=== PATIENT | female | born 1940 | race Caucasian/White ===

== ENCOUNTER 2020-10-31 21:12 | Inpatient (IN) | payer MEDICARE, BC ==
[~2020-10-31] VITALS: Ht 160 cm; Wt 41.0 kg
[2020-10-31 21:40] VITALS: BP 141/52
[2020-10-31 21:49] LABS: MPV 7.1 fl. (7.2-11.1); PLATELET COUNT* 564 thou/uL (150-400)
[2020-10-31 21:50] LABS: BE -1.7 mmol/L (-2 to +3); PO2 71.3 mmHg (75.0-100.0)
[2020-10-31 21:51] LABS: HEMATOCRIT 41.4 % (37.0-47.0); HEMOGLOBIN 13.2 gm/dL (12.0-15.0); MCH 32.8 pg (26.0-34.0); MCHC 31.8 g/dL (28.0-37.0); MCV 103.2 fL (80.0-100.0); NUCLEATED RBCS 0 /100WBC; RBC 4.02 mil/uL (4.20-5.00); RDW-CV 14.2 % (10.5-14.5)
[2020-10-31 21:53] LABS: pH 7.205 (7.340-7.450)
[2020-10-31 21:53] LABS: WBC 50.3 thou/uL (4.0-11.0)
[2020-10-31 21:54] LABS: PCO2 72.7 mmHg (35.0-45.0)
[2020-10-31 21:54] LABS: CALCIUM 8.7 mg/dL (8.5-10.1); CREATININE 1.5 mg/dL (0.6-1.3); POTASSIUM 5.4 mmol/L (3.5-5.1)
[2020-10-31 22:04] LABS: INR 1.1; PROTIME 11.4 Seconds (9.20-11.50)
[2020-10-31 22:05] LABS: ALBUMIN 1.7 g/dL (3.4-5.0); MAGNESIUM 2.1 mg/dL (1.8-2.4); TOTAL BILIRUBIN 0.4 mg/dL (<0.1-1.0); TOTAL PROTEIN 6.7 g/dL (6.4-8.2)
[2020-10-31 22:18] LABS: ABSOLUTE LYMPHOCYTES 18.1 thou/uL (0.8-5.3); ABSOLUTE MONOCYTES 0.5 thou/uL (0.0-1.2); ABSOLUTE NEUTROPHILS 31.7 thou/uL (1.6-8.1)
[2020-10-31 22:19] LABS: MACROCYTES 1+; PLATELET ESTIMATE INCREASED
[2020-10-31 23:47] LABS: URINE BILIRUBIN NEGATIVE (Negative); URINE BLOOD NEGATIVE (Negative); URINE CLARITY CLEAR; URINE COLOR YELLOW; URINE GLUCOSE-RANDOM NEGATIVE (Negative); URINE KETONES NEGATIVE (Negative); URINE LEUKOCYTES-REFLEX NEGATIVE (Negative); URINE NITRITE-REFLEX NEGATIVE (Negative); URINE PROTEIN TRACE (Negative); URINE SPECIFIC GRAVITY 1.025 (1.005-1.030); URINE UROBILINOGEN 0.2 E.U./dl (0.2-1.0)
[2020-10-31 23:58] VITALS: BP 144/54
[2020-11-01] VITALS (63 sets, daily range): BP systolic 58–168; BP diastolic 26–104
[2020-11-01 01:25] LABS: BE -3.1 mmol/L (-2 to +3); PO2 77.6 mmHg (75.0-100.0)
[2020-11-01 01:26] LABS: PCO2 68.3 mmHg (35.0-45.0); pH 7.202 (7.340-7.450)
[2020-11-01 06:59] LABS: PO2 66.3 mmHg (75.0-100.0)
[2020-11-01 07:01] LABS: PCO2 89.6 mmHg (35.0-45.0); pH 7.123 (7.340-7.450)
[2020-11-01 09:47] LABS: AMP/METHAMP Negative (Negative); BARBITURATES Negative (Negative); BENZODIAZEPINES Negative (Negative); COCAINE Negative (Negative); METHADONE Negative (Negative); OPIATES Negative (Negative); PCP Negative (Negative); THC Negative (Negative)
[2020-11-01 10:15] LABS: AMP/METHAMP Negative (Negative); BARBITURATES Negative (Negative); BENZODIAZEPINES Negative (Negative); COCAINE Negative (Negative); METHADONE Negative (Negative); OPIATES Negative (Negative); PCP Negative (Negative); THC Negative (Negative)
--- NOTE | 2020-11-01 11:06 | EKG ---
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 : 1940 Requested By: Rohini Carney Order Number: [id number] MD: Hernán Hubbard Measurements Intervals [place] Rate: 93 P: 90 PA: 116 QRS: 100 QRSD: 69 T: -74 QT: 377 QTc: 469 Interpretive Statements Sinus rhythm Borderline short PA interval Low voltage with right axis deviation Anteroseptal infarct, old Minimal ST depression, inferior leads No previous ECG available for comparison Electronically Signed On 11-01-2020 11:06:31 COPY PREPARER by Hernán Hubbard [email or web address] <ELECTRONICALLY SIGNED> By: Hernán Hubbard MD, [facility] 11/01/20 1106 24 24 Hernán Hubbard MD, [facility] /EPI
[2020-11-01 11:09] LABS: BE -1.1 mmol/L (-2 to +3); PCO2 43.9 mmHg (35.0-45.0); PO2 67.7 mmHg (75.0-100.0); pH 7.362 (7.340-7.450)
[2020-11-01 11:25] LABS: ABSOLUTE LYMPHOCYTES 11.1 thou/uL (0.8-5.3); ABSOLUTE MONOCYTES 0.7 thou/uL (0.0-1.2); ABSOLUTE NEUTROPHILS 23.7 thou/uL (1.6-8.1); HEMATOCRIT 28.2 % (37.0-47.0); HEMOGLOBIN 8.7 gm/dL (12.0-15.0); LYMPHOCYTES 31.3 %; MCHC 30.9 g/dL (28.0-37.0); MCV 103.5 fL (80.0-100.0); MPV 6.9 fl. (7.2-11.1); NUCLEATED RBCS 0 /100WBC; PLATELET COUNT* 370 thou/uL (150-400); POLYS 66.7 %; RBC 2.72 mil/uL (4.20-5.00); RDW-CV 14.2 % (10.5-14.5); WBC 35.6 thou/uL (4.0-11.0)
[2020-11-01 11:51] LABS: ALBUMIN 1.1 g/dL (3.4-5.0); CREATININE 1.3 mg/dL (0.6-1.3); TOTAL BILIRUBIN 0.5 mg/dL (<0.1-1.0); TOTAL PROTEIN 4.5 g/dL (6.4-8.2)
[2020-11-01 11:55] LABS: POTASSIUM 3.7 mmol/L (3.5-5.1)
--- NOTE | 2020-11-01 13:10 | CON ---
[address] [address] CONSULTATION Name: GREGORY GIPSON Room: [address] IN M.R.#: [id number] Admission: 10/31/20 Attend Phys: Jose Levi MD Discharge: Date of : 44 Report #: [id number] THIS REPORT FOR: cc: FAM - No family physician/PCP FAM - No family physician/PCP ~ Scooter Bee MD DATE OF SERVICE: 11/01/2020 REQUESTING PHYSICIAN: 1. Dr. Levi 2. Dr. Gomez INDICATION FOR CONSULTATION: Acute hypoxemic respiratory failure. HISTORY OF PRESENT ILLNESS: A 80-year-old female, information regarding past medical history is limited. The patient is, however, reported to have had CLL. The patient also has significant alcohol intake. Information regarding previous history of smoking is not available at this time. The patient is reported to be having progressively increasing weakness. She was reported to be reluctant to seek medical attention. The patient's family eventually noticed that the patient could not even stand unassisted and therefore brought her to the Emergency Room. The patient was noted to be hypoxemic on initial arrival. She also had pCO2 elevation. Further, the patient had a total whiteout of the left lung with no significant infiltrates seen on the chest x-ray on the right side. We initially placed the patient on a BiPAP since she also had significantly decreased pH and pCO2 was elevated. This in fact worsened on BiPAP and therefore, we proceeded to endotracheally intubating the patient this morning. The patient is currently on 75% FiO2 with 5 of PEEP. She is doing better on the ventilator. She did become hypotensive and now is on low-dose norepinephrine. She has received IV fluids initially. There is also elevation in creatinine to 1.5. It is not known to me whether this is acute or chronic. The patient despite having had a significant alcohol intake, in fact, appears to be very sensitive to Versed and in fact is quickly going to sleep with just 1 mg of Versed although she does subsequently wake up quickly. We currently have her on a p.r.n. Versed and fentanyl. She appears to be intermittently getting agitated between boluses. Since intubation, there is partial expansion of the left lung. We have also suctioned out a large amount of sputum. We have had a PICC line placed. The patient currently is on the ventilator and is unable to provide a further [place] [address] CONSULTATION Name: GREGORY GIPSON Room: [address]#: [id number] Admission: 10/31/20 Attend Phys: Jose Levi MD Discharge: Date of : 44 Report #: [id number] PAST MEDICAL HISTORY: CLL. Additional past medical history, not known at this time. CURRENT MEDICATIONS: The list in [employer] reviewed. HOME MEDICATIONS: Unknown. SOCIAL HISTORY: Several beers every night and therefore a significant alcohol intake. Information regarding smoking or drug use not available at this time. FAMILY HISTORY: Unavailable. ALLERGIES: No known drug allergies. PHYSICAL EXAMINATION: GENERAL: The patient was drowsy, but was at the same time also struggling in bed. We sedated her with just 1 mg of Versed and she quickly went to sleep. She is on low dose norepinephrine. VITAL SIGNS: Blood pressure is 90/60. She has a heart rate around 90. She is saturating close to 96%. She is on 75% FiO2 with a tidal volume of 420, rate is set at 20, PEEP is 5. Endotracheal tube is low in the trachea. Pupil examination is limited due to limited patient cooperation. She does appear to be emaciated with a body mass index of 15.8. HEENT: Head is normocephalic and atraumatic. NECK: Does not show raised JVP, asymmetry, mass or lymph nodes. CHEST: Decreased expansion on the left side compared with a right on inspection as well as palpation. On auscultation, breath sounds are markedly decreased on the left side compared with the right. There are occasional rales on the left side. HEART: Regular. There is no murmur. ABDOMEN: Soft and nontender. EXTREMITIES: Lower extremities show no edema, no calf tenderness. SKIN: Dry and intact. NEUROLOGICAL: She was moving all extremities. I did not identify a focal deficit. LABORATORY DATA: The patient's chest x-ray is repeated 3 times in [facility] reviewed. See further discussion regarding x-rays as above. The patient also had a CT chest without contrast. Yesterday, I also reviewed the same and this is discussed below with assessment and plan in more detail. X-ray abdomen also reviewed, both the films and report there are no additional findings. ASSESSMENT AND PLAN: 1. Acute hypoxemic respiratory failure. We will keep the patient on the [address] [address] CONSULTATION Name: GREGORY GIPSON Room: [address] IN [facility].#: [id number] Admission: 10/31/20 Attend Phys: Jose Levi MD Discharge: Date of : 44 Report #: [id number] ventilator. We may be able to decrease the rate soon as arterial blood gases, which have been reviewed show pCO2 now normalizing, we will titrate FiO2. Since she is on high FiO2 and had significant hypercarbia and information regarding previous lung disease, not available. I did give her a significant dose of Solu-Medrol in addition to nebulized bronchodilators. Since she is intermittently waking up between sedation and getting agitated with p.r.n. sedation. I will go ahead and place her on a fentanyl drip. We will continue with Versed on a p.r.n. basis. She may also be given fentanyl boluses, would sedated to a RAST -2 at this time even if this leads to an increase in pressure needs. 2. Extensive left lung infiltrates/large left-sided pleural effusion/possible empyema/left lung collapse. I reviewed with Dr. Daniels, interventional radiologist and discussed as to whether we should place a pigtail or perform a thoracentesis first. His preference is to proceed with thoracentesis and I understand that this will be performed soon at the bedside. We will see how the patient responds. It is possible that the patient down the line needs a pigtail or chest tube placement on the left side. Meanwhile, I would like to cover her very broadly started Zosyn during the night. I will go ahead and add vancomycin while closely watching her creatinine. We will follow sputum culture results. The patient also is on doxycycline. I did not change this at this time but perhaps there is a case to continue some atypical as well as Stenotrophomonas maltophilia coverage, which doxycycline does provide until the cultures are back. An option could be to use Levaquin instead, which obviously will be more effective and also have more side effects. We will follow an advise. 3. Hypotension/hypoalbuminemia/renal insufficiency/planned large volume pleural effusion removal. I expect a large volume of pleural fluid to be removed. I would give albumin. We have ordered repeat labs and we will review when these are available and then reassess fluids. 4. Mucus plugging. Mucomyst dose increased. Would first treat by removing the fluid on the left side and the pleural effusion if the left lung fails to expand, certainly a bronchoscopy in the next few days will be a possible consideration later. 5. History of alcohol intake. I will order thiamine and folate, but interestingly, she is very sensitive to Versed despite this history. We will try to get more information regarding her past history. 6. Rule out COVID-19. My overall suspicion is low, but I feel that it is reasonable to check a PCR and rule this out. The antigen is negative. The patient currently is in isolation for COVID till back. 7. Evaluation for thromboembolic phenomena/deep venous thrombosis prophylaxis/evaluation of cardiac function. Check echo, check venous Dopplers, Lovenox for deep venous thrombosis prophylaxis. 8. Gastrointestinal prophylaxis, Protonix. 9. Clostridium difficile prophylaxis. We [place] [address] CONSULTATION Name: GREGORY GIPSON Room: [address] IN .R.#: [id number] Admission: 10/31/20 Attend Phys: Jose Levi MD Discharge: Date of : 44 Report #: [id number]. 10. Drop in H and H, I feel the significant part of this is dilutional. Regardless, we will follow if continues to drop, we will give packed RBCs. 11. Leukocytosis/history of chronic lymphocytic leukemia. She does have a history of chronic lymphocytic leukemia, had a significant leukocytosis. I feel that a significant component of this is secondary to sepsis as well. 12. IV access, we placed a PICC line. 13. The patient is critically ill at this time. Total time spent providing critical care to this patient today is 1 hour. <ELECTRONICALLY SIGNED> By: Scooter Bee MD 11/01/20 1310 1141 1258Afranc Bee MD /nt
[2020-11-01 13:25] LABS: BF RBC <1000 /mm3; TOTAL CELL COUNT 757 /mm3
[2020-11-01 13:28] LABS: CLARITY SLIGHTLY HAZY; TOTAL VOLUME 1660 ml
[2020-11-01 13:44] LABS: BF LYMPHOCYTES 19 %; BF POLYS 81 %; BF TISSUE 23 /100 WBC
[2020-11-01 13:50] LABS: SOURCE THORACENTESIS
--- NOTE | 2020-11-01 16:28 | 2DMMODE ---
[place] [address] 2 D/M-MODE ECHOCARDIOGRAM Name: GREGORY GIPSON Room: [address] IN [facility]#: [id number] Admission: 10/31/20 Attend Phys: Jose Levi, Discharge: Date of : 44 Date of Service: 11/01/20 1628 Report #: [id number] THIS REPORT FOR: cc: FAM - No family physician/PCP FAM - No family physician/PCP Nicolás Adams MD [facility] ~ APPROVED REPORT Study performed: 11/01/2020 14:15:30 EXAM: Comprehensive 2D, Doppler, and color-flow Echocardiogram Patient Location: In-Patient Room #: 002 Status: routine BSA: 1.37 HR: 73 bpm BP: 126/54 mmHg Rhythm: NSR Other Information Study Quality: Good Indications Dyspnea 2D Dimensions IVSd: 9.50 (7-11mm) LVOT Diam: 17.20 (18-24mm) LVDd: 37.14 mm PWd: 8.06 (7-11mm) Ascending Ao: 21.73 (22-36mm) LVDs: 14.59 (25-40mm) Aortic Root: 24.76 mm Volumes Left Atrial Volume (Systole) LA ESV Index: 27.70 mL/m2 Aortic Valve AoV Peak Jose.: 1.53 m/s AO Peak Gr.: 9.41 mmHg LVOT Max P.21 mmHg AO Mean Gr.: 4.26 mmHg LVOT Mean P.59 mmHg LVOT Max V: 1.43 m/s AO V2 VTI: 34.90 cm LVOT Mean V: 0.73 m/s JT (VTI): 1.91 cm2 LVOT V1 VTI: 28.66 [place] [address] 2 D/M-MODE ECHOCARDIOGRAM Name: GREGORY GIPSON Room: [address]#: [id number] Admission: 10/31/20 Attend Phys: Jose Levi, Discharge: Date of : 44 Date of Service: 11/01/20 1628 Report #: [id number] Mitral Valve E/A Ratio: 1.48 MV Decel. Time: 192.69 ms MV E Max Jose.: 1.04 m/s MV PHT: 55.88 ms MVA (PHT): 3.94 cm2 TDI E/Lateral E': 13.00 E/Medial E': 10.40 Medial E' Jose.: 0.10 m/s Lateral E' Jose.: 0.08 m/s Pulmonary Valve PV Peak Jose.: 0.95 m/s PV Peak Gr.: 3.60 mmHg Tricuspid Valve RAP Estimate: 5.00 mmHg TR Peak Gr.: 34.51 mmHg RVSP: 39.00 mmHg PA Pressure: 39.00 mmHg Left Ventricle The left ventricle is normal size. There is normal LV segmental wall motion. There is normal left ventricular wall thickness. The left ventricular systolic function is normal. LVEF is >70%. The left ventricular diastolic function is normal. Right Ventricle Right ventricle is mildly dilated. The right ventricular systolic function is normal. Atria The left atrium size is normal. Right atrium is mildly dilated. Aortic Valve Mild aortic valve sclerosis. No aortic regurgitation is present. There is no aortic valvular stenosis. Mitral Valve The mitral valve is normal in structure. Mild mitral regurgitation. No evidence of mitral valve stenosis. Tricuspid Valve The tricuspid valve is normal in structure. Mild tricuspid regurgitation. Mild pulmonary hypertension. The RVSP is 40-[place] [address] 2 D/M-MODE ECHOCARDIOGRAM Name: GREGORY GIPSON Room: [address]#: [id number] Admission: 10/31/20 Attend Phys: Jose Levi, Discharge: Date of : 44 Date of Service: 11/01/20 1628 Report #: [id number] Pulmonic Valve The pulmonary valve is normal in structure. There is no pulmonic valvular regurgitation. Great Vessels The aortic root is normal in size. IVC is normal in size and collapses >50% with inspiration. Pericardium There is no pericardial effusion. <Conclusion> The left ventricle is normal size. There is normal left ventricular wall thickness. The left ventricular systolic function is normal. LVEF is >70%. The left ventricular diastolic function is normal. Right ventricle is mildly dilated. Right atrium is mildly dilated. Mild aortic valve sclerosis. Mild mitral regurgitation. Mild tricuspid regurgitation. Mild pulmonary hypertension. The RVSP is 40-45 mmHg. IVC is normal in size and collapses >50% with inspiration. <ELECTRONICALLY SIGNED> By: Nicolás Adams MD, FACC 11/01/20 1628 1628 1628 Nicolás Adams MD, FACC /INF
[2020-11-01 18:00] LABS: ABSOLUTE LYMPHOCYTES 15.7 thou/uL (0.8-5.3); ABSOLUTE MONOCYTES 0.7 thou/uL (0.0-1.2); ABSOLUTE NEUTROPHILS 23.6 thou/uL (1.6-8.1); BASOPHILS 0.1 %; HEMATOCRIT 30.4 % (37.0-47.0); HEMOGLOBIN 9.6 gm/dL (12.0-15.0); LYMPHOCYTES 39.2 %; MCH 32.8 pg (26.0-34.0); MCHC 31.5 g/dL (28.0-37.0); MONOCYTES 1.8 %; NUCLEATED RBCS 0 /100WBC; PLATELET COUNT* 368 thou/uL (150-400); POLYS 58.9 %; RBC 2.92 mil/uL (4.20-5.00)
[2020-11-01 18:06] LABS: WBC 40.1 thou/uL (4.0-11.0)
[2020-11-01 18:09] LABS: CALCIUM 7.6 mg/dL (8.5-10.1); CREATININE 1.5 mg/dL (0.6-1.3); MAGNESIUM 2.4 mg/dL (1.8-2.4)
[2020-11-01 18:11] LABS: POTASSIUM 4.8 mmol/L (3.5-5.1)
[2020-11-02] VITALS (60 sets, daily range): BP systolic 80–156; BP diastolic 33–73
[2020-11-02 05:24] LABS: ABSOLUTE LYMPHOCYTES 14.9 thou/uL (0.8-5.3); ABSOLUTE NEUTROPHILS 22.3 thou/uL (1.6-8.1); BASOPHILS 0.1 %; HEMOGLOBIN 8.4 gm/dL (12.0-15.0); LYMPHOCYTES 39.1 %; MCH 33.6 pg (26.0-34.0); MCHC 32.1 g/dL (28.0-37.0); MCV 104.7 fL (80.0-100.0); MONOCYTES 2.5 %; MPV 7.1 fl. (7.2-11.1); NUCLEATED RBCS 0 /100WBC; PLATELET COUNT* 310 thou/uL (150-400); POLYS 58.3 %; RBC 2.49 mil/uL (4.20-5.00); RDW-CV 13.8 % (10.5-14.5); WBC 38.2 thou/uL (4.0-11.0)
[2020-11-02 06:00] LABS: CALCIUM 7.7 mg/dL (8.5-10.1); CREATININE 1.5 mg/dL (0.6-1.3); MAGNESIUM 2.1 mg/dL (1.8-2.4); TOTAL BILIRUBIN 0.5 mg/dL (<0.1-1.0); TOTAL PROTEIN 5.7 g/dL (6.4-8.2)
[2020-11-02 06:01] LABS: POTASSIUM 3.7 mmol/L (3.5-5.1)
[2020-11-02 08:14] LABS: PCO2 34.8 mmHg (35.0-45.0); PO2 76.1 mmHg (75.0-100.0); pH 7.417 (7.340-7.450)
[2020-11-02 15:15] LABS: BODY FLUID PROTEIN 2.3
[2020-11-02 16:31] LABS: CALCIUM 7.5 mg/dL (8.5-10.1); CREATININE 1.4 mg/dL (0.6-1.3); MAGNESIUM 1.9 mg/dL (1.8-2.4); POTASSIUM 4.4 mmol/L (3.5-5.1)
[2020-11-03] VITALS (13 sets, daily range): BP systolic 113–152; BP diastolic 46–70
[2020-11-03 04:21] LABS: HEMATOCRIT 29.5 % (37.0-47.0); HEMOGLOBIN 9.3 gm/dL (12.0-15.0); MCH 32.8 pg (26.0-34.0); MCHC 31.4 g/dL (28.0-37.0); MCV 104.3 fL (80.0-100.0); MPV 7.3 fl. (7.2-11.1); RBC 2.83 mil/uL (4.20-5.00); RDW-CV 14.1 % (10.5-14.5)
[2020-11-03 04:33] LABS: WBC 40.1 thou/uL (4.0-11.0)
[2020-11-03 05:00] LABS: ALBUMIN 2.6 g/dL (3.4-5.0); CALCIUM 8.3 mg/dL (8.5-10.1); CREATININE 1.4 mg/dL (0.6-1.3); MAGNESIUM 1.8 mg/dL (1.8-2.4); POTASSIUM 3.7 mmol/L (3.5-5.1); TOTAL BILIRUBIN 0.4 mg/dL (<0.1-1.0); TOTAL PROTEIN 5.3 g/dL (6.4-8.2)
[2020-11-03 06:51] LABS: BE -3.1 mmol/L (-2 to +3); PCO2 41.4 mmHg (35.0-45.0); pH 7.349 (7.340-7.450)
[2020-11-03 06:54] LABS: PO2 59.5 mmHg (75.0-100.0)
[2020-11-04] VITALS (28 sets, daily range): BP systolic 113–155; BP diastolic 49–68
[2020-11-04 05:24] LABS: HEMATOCRIT 27.9 % (37.0-47.0); HEMOGLOBIN 9.2 gm/dL (12.0-15.0); MCH 34.9 pg (26.0-34.0); MCHC 32.8 g/dL (28.0-37.0); MCV 106.4 fL (80.0-100.0); MPV 7.9 fl. (7.2-11.1); NUCLEATED RBCS 0 /100WBC; PLATELET COUNT* 238 thou/uL (150-400); RBC 2.62 mil/uL (4.20-5.00); RDW-CV 14.4 % (10.5-14.5); WBC 34.6 thou/uL (4.0-11.0)
[2020-11-04 05:42] LABS: ALBUMIN 2.8 g/dL (3.4-5.0); CALCIUM 7.7 mg/dL (8.5-10.1); CREATININE 1.2 mg/dL (0.6-1.3); POTASSIUM 3.6 mmol/L (3.5-5.1); TOTAL BILIRUBIN 0.4 mg/dL (<0.1-1.0); TOTAL PROTEIN 5.6 g/dL (6.4-8.2)
[2020-11-04 07:52] LABS: BE -3.2 mmol/L (-2 to +3); PCO2 37.4 mmHg (35.0-45.0); pH 7.378 (7.340-7.450)
[2020-11-04 08:33] LABS: ABSOLUTE MONOCYTES 0.3 thou/uL (0.0-1.2); ABSOLUTE NEUTROPHILS 26.3 thou/uL (1.6-8.1)
[2020-11-04 08:34] LABS: MACROCYTES 1+; PLATELET ESTIMATE ADEQUATE; TOXIC GRANULATION Occasional
[2020-11-05] VITALS (32 sets, daily range): BP systolic 75–127; BP diastolic 34–73
[2020-11-05 05:01] LABS: HEMATOCRIT 31.2 % (37.0-47.0); HEMOGLOBIN 9.9 gm/dL (12.0-15.0); MCHC 31.8 g/dL (28.0-37.0); MCV 103.8 fL (80.0-100.0); MPV 7.8 fl. (7.2-11.1); RBC 3.01 mil/uL (4.20-5.00); RDW-CV 14.5 % (10.5-14.5); WBC 35.8 thou/uL (4.0-11.0)
[2020-11-05 05:13] LABS: PCO2 32.2 mmHg (35.0-45.0); PO2 70.3 mmHg (75.0-100.0); pH 7.355 (7.340-7.450)
[2020-11-05 05:15] LABS: CALCIUM 7.9 mg/dL (8.5-10.1); CREATININE 1.2 mg/dL (0.6-1.3); POTASSIUM 3.5 mmol/L (3.5-5.1)
[2020-11-05 11:57] LABS: PROTIME 10.9 Seconds (9.20-11.50)
[2020-11-05 14:20] LABS: BF LYMPHOCYTES 24 %; BF MONOCYTES 1 %; BF POLYS 74 %; BF TISSUE 6 /100 WBC; BODY FLUID BANDS 1 %
[2020-11-05 14:21] LABS: CLARITY SLIGHTLY CLOUDY; SOURCE PLEURAL; TOTAL VOLUME 860 ml
[2020-11-05 14:22] LABS: BF RBC 102 /mm3; TOTAL CELL COUNT 190 /mm3
--- NOTE | 2020-11-05 16:06 | PATH ---
[address] [address] PATHOLOGY RPT PROCEDURE Name: GREGORY GIPSON Room: [address] IN [facility]#: [id number] Admission: 10/31/20 Date of : 44 Discharge: Report #: [id number] Path Case #: [id number] Note [facility] Accession Number: [id number] TESTS RESULT FLAG UNITS REF RANGE LAB Clinician Provided Cytology Information No. of containers..01 Other (Miscellaneous) Source: LT PLEURAL FLUID DIAGNOSIS: LT PLEURAL FLUID NEGATIVE FOR MALIGNANT CELLS. FEW MESOTHELIAL CELLS AND MODERATE ACUTE AND CHRONIC INFLAMMATORY CELLS ARE PRESENT. THIS INTERPRETATION INCLUDES EVALUATION OF A CELL BLOCK. Signed out by: 02 Rich Hamm MD, Pathologist NPI- [id number] Performed by: 01 Paige Terrell, Ring Conductor ([facility]) Gross description: 01 55ML, YELLOW, 1TP 1CB /LCS 11/02/2020 0725 Local FLAG LEGEND: L-Low Normal,H-High Normal,LL-Alert Low,HH-Alert High <-Panic Low,>-Panic High,A-Abnormal,AA-Critical Abnormal Performed at: [address] [place] [address] Sergio Begum MD, 02 [facility] [address] [place] [address] Rich Hamm MD, Specimen Comment: Report sent to Performed at: [address], [place], [place] [id number] MD Sergio Begum MD Phone: [phone]
--- NOTE | 2020-11-05 21:05 | PROC ---
[address] [address] PROCEDURE REPORT Name: GREGORY GIPSON Room: [address] IN M.R.#: [id number] Admission: 10/31/20 Attend Phys: Jose Levi MD Discharge: Date of : 44 Report #: [id number] THIS REPORT FOR: cc: FAM - No family physician/PCP FAM - No family physician/PCP ~ Scotoer Bee MD DATE OF SERVICE: 11/02/2020 PROCEDURE PERFORMED: Bronchoscopy with bronchial washings. INDICATION FOR PROCEDURE: Left mainstem obstruction secondary to mucus plugging. POSTPROCEDURE DIAGNOSIS: Large amount of mucus was noted to be obstructing the left mainstem and was present throughout the left bronchial tree and was suctioned out. CONSENT: Informed consent was obtained from the patient, so the patient's RN discussed in detail with the patient's daughter. SEDATION: The patient was already on a Precedex infusion. We also administered 2 mg of Versed. DESCRIPTION OF PROCEDURE: A lubricated bronchoscope was advanced through the endotracheal tube and then I proceeded to examining the bronchial tree. We instilled 3 mL of 2% Xylocaine in the trachea, right as well as left mainstem. There was a significant amount of mucus noted, which was thick cream colored/yellow in the trachea. This was suctioned out. Trachea, however, was patent. There was obstruction of the left mainstem noted secondary to mucous plugging. Mucus from here was suctioned out. I first proceeded to obtaining a sample of about 20 mL of thick yellow mucus in a trap. After which for better suction, I removed the trap and proceeded with more suction without the trap in place. Initially, the mucus was very thick and it was difficult to suction it out and therefore, we instilled the 3 mL of 20% Mucomyst solution. After which, we were able to suction the mucus into the bronchoscope. Significant amounts of saline, however, were needed to be able to clear the patient's airways. At one point, the bronchoscope got occluded with mucus and I removed the bronchoscope from the patient, rinsed it with saline and then reintroduced. In all 110 mL of saline were instilled in the left bronchial tree, most of this was suctioned back out when the mucus was cleared. Large amounts of thick yellow and white mucus were present throughout the left bronchial tree in the left upper lobe lingula as well as a left lower lobe and this was suctioned out. At the end of the procedure, there was only a small amount of thick white mucus present in the left lower lobe. There was erythema of the mucosa, also noted in the left [place] [address] PROCEDURE REPORT Name: GREGORY GIPSON Room: [address] IN M.R.#: [id number] Admission: 10/31/20 Attend Phys: Jose Levi MD Discharge: Date of : 44 Report #: [id number] was most prominent in the left lower lobe. Lesser amount of erythema was also present in the left upper lobe and lingula. There were no endobronchial lesions identified. I also examined the right bronchial tree. There were small amounts of thick white mucus present on this side as well, which was suctioned out, but quantities were small on this side. There were no additional findings in the right bronchial tree. The specimen collected was sent to the laboratory and the results from the specimen will be followed up. The patient did not have any complications as a result of this procedure. Immediately after the procedure, O2 saturation was slightly lower at around 94-95% on 50% FiO2 as compared within the high 90s before on 40% FiO2 with 5 of PEEP. I did do in fact 2 chest x-rays, which do not show any pneumothorax. Slight reduction in O2 saturations is likely due to saline, which was administered into the bronchial tree to remove the mucus as well as some VQ mismatch, which may have resulted from opening the left lung from mucus. <ELECTRONICALLY SIGNED> By: Scooter Bee MD 11/05/20 2105 2223 2259Afranc Bee MD /nt
[2020-11-06] VITALS (24 sets, daily range): BP systolic 90–176; BP diastolic 38–73
[2020-11-06 05:22] LABS: ABSOLUTE LYMPHOCYTES 13.9 thou/uL (0.8-5.3); ABSOLUTE MONOCYTES 0.9 thou/uL (0.0-1.2); ABSOLUTE NEUTROPHILS 19.9 thou/uL (1.6-8.1); BASOPHILS 0.1 %; EOSINOPHILS 0.1 %; HEMATOCRIT 28.4 % (37.0-47.0); HEMOGLOBIN 9.4 gm/dL (12.0-15.0); LYMPHOCYTES 40.1 %; MCH 34.7 pg (26.0-34.0); MCHC 33.3 g/dL (28.0-37.0); MCV 104.3 fL (80.0-100.0); MONOCYTES 2.5 %; MPV 8.5 fl. (7.2-11.1); NUCLEATED RBCS 0 /100WBC; PLATELET COUNT* 226 thou/uL (150-400); POLYS 57.2 %; RBC 2.72 mil/uL (4.20-5.00); RDW-CV 14.5 % (10.5-14.5); WBC 34.8 thou/uL (4.0-11.0)
[2020-11-06 05:37] LABS: CALCIUM 7.5 mg/dL (8.5-10.1); CREATININE 1.1 mg/dL (0.6-1.3); MAGNESIUM 2.2 mg/dL (1.8-2.4); POTASSIUM 3.9 mmol/L (3.5-5.1); TOTAL BILIRUBIN 0.3 mg/dL (<0.1-1.0); TOTAL PROTEIN 4.7 g/dL (6.4-8.2)
[2020-11-06 11:38] LABS: BE -3.2 mmol/L (-2 to +3); PCO2 41.5 mmHg (35.0-45.0); PO2 74.7 mmHg (75.0-100.0); pH 7.347 (7.340-7.450)
--- NOTE | 2020-11-06 13:52 | 2DMMODE ---
[place] [address] 2 D/M-MODE ECHOCARDIOGRAM Name: GREGORY GIPSON Ronda Room: [address] IN [facility]#: [id number] Admission: 10/31/20 Attend Phys: Jose Levi, Discharge: Date of : 44 Date of Service: 11/06/20 1352 Report #: [id number] THIS REPORT FOR: cc: FAM - No family physician/PCP FAM - No family physician/PCP Nicolás Adams MD [facility] ~ APPROVED REPORT Study performed: 11/06/2020 09:37:17 EXAM: Limited 2D Echocardiogram Patient Location: In-Patient Room #: 70 Status: routine BSA: 1.50 HR: 56 bpm BP: 113/47 mmHg Rhythm: NSR Other Information Study Quality: Good Indications Dyspnea Tricuspid Valve RAP Estimate: 5.00 mmHg TR Peak Gr.: 40.70 mmHg RVSP: 45.00 mmHg PA Pressure: 45.00 mmHg Left Ventricle The left ventricle is normal size. There is normal LV segmental wall motion. Mild concentric left ventricular hypertrophy. The left ventricular systolic function is normal. LVEF is 65-70%. Right Ventricle Right ventricle is mildly dilated. The right ventricular systolic function is normal. Atria Left atrium is mildly dilated. Right atrium is mildly dilated. Aortic Valve Mild aortic valve sclerosis. No aortic [place] [address] 2 D/M-MODE ECHOCARDIOGRAM Name: GREGORY GIPSON Room: [address] IN .R.#: [id number] Admission: 10/31/20 Attend Phys: Jose Levi, Discharge: Date of : 44 Date of Service: 11/06/20 1352 Report #: [id number] There is no aortic valvular stenosis. Mitral Valve The mitral valve is normal in structure. Trace mitral regurgitation. No evidence of mitral valve stenosis. Tricuspid Valve Mild tricuspid regurgitation. Moderate pulmonary hypertension. The RVSP is 45-50 mmHg. Pulmonic Valve The pulmonary valve is normal in structure. Great Vessels The aortic root is normal in size. IVC is normal in size and collapses >50% with inspiration. Pericardium There is no pericardial effusion. <Conclusion> The left ventricle is normal size. Mild concentric left ventricular hypertrophy. The left ventricular systolic function is normal. LVEF is 65-70%. There is normal LV segmental wall motion. Right ventricle is mildly dilated. Left atrium is mildly dilated. Right atrium is mildly dilated. Mild aortic valve sclerosis. Trace mitral regurgitation. Mild tricuspid regurgitation. Moderate pulmonary hypertension. The RVSP is 45-50 mmHg. <ELECTRONICALLY SIGNED> By: Nicolás Adams MD, [facility] 11/06/20 135 135 51 Nicolás Adams MD, FACC /INF
[2020-11-06 14:07] LABS: BODY FLUID LDH 86 IU/L (()); BODY FLUID PROTEIN 2.2 g/dL (())
--- NOTE | 2020-11-06 14:07 | PATH ---
[address] [address] PATHOLOGY RPT PROCEDURE Name: GREGORY GIPSON Room: [address] IN [facility]#: [id number] Admission: 10/31/20 Date of : 44 Discharge: Report #: [id number] Path Case #: [id number] Note [facility] Accession Number: [id number] TESTS RESULT FLAG UNITS REF RANGE LAB Clinician Provided Cytology Information No. of containers..01 Other (Miscellaneous) Source: [facility]CH WASH L MAINSTEM DIAGNOSIS: 02 [facility] WASH L MAINSTEM NEGATIVE FOR MALIGNANT CELLS. RARE PULMONARY MACROPHAGES (DUST CELLS) AND BRONCHIAL EPITHELIAL CELLS WITH OBSCURRING ACUTE INFLAMMATION. Signed out by: 02 Rich Hamm MD, Pathologist NPI- [id number] Performed by: Axel Greer, Reinstatement Clerk ([facility]) Gross description: 01 20ML, CLOUDY WHITE, 1 TP /LCS 11/05/2020 1205 Local FLAG LEGEND: L-Low Normal,H-High Normal,LL-Alert Low,HH-Alert High <-Panic Low,>-Panic High,A-Abnormal,AA-Critical Abnormal Performed at: [address] [place] [address] Sergio Begum MD, [address] [address] Rich Hamm MD, Specimen Comment: Report sent to Performed at: [address], [place], [place] [id number] MD Sergio Begum MD Phone: [phone]
[2020-11-07] VITALS (24 sets, daily range): BP systolic 116–174; BP diastolic 40–93
[2020-11-07 05:22] LABS: HEMATOCRIT 33.6 % (37.0-47.0); HEMOGLOBIN 10.8 gm/dL (12.0-15.0); MCH 34.2 pg (26.0-34.0); MCV 106.7 fL (80.0-100.0); MPV 8.4 fl. (7.2-11.1); NUCLEATED RBCS 0 /100WBC; PLATELET COUNT* 282 thou/uL (150-400); RBC 3.15 mil/uL (4.20-5.00)
[2020-11-07 05:26] LABS: WBC 50.3 thou/uL (4.0-11.0)
[2020-11-07 05:35] LABS: ALBUMIN 2.2 g/dL (3.4-5.0); CALCIUM 7.7 mg/dL (8.5-10.1); CREATININE 1.1 mg/dL (0.6-1.3); MAGNESIUM 2.3 mg/dL (1.8-2.4); POTASSIUM 3.8 mmol/L (3.5-5.1); TOTAL BILIRUBIN 0.4 mg/dL (<0.1-1.0); TOTAL PROTEIN 5.4 g/dL (6.4-8.2)
[2020-11-07 06:27] LABS: ABSOLUTE LYMPHOCYTES 25.7 thou/uL (0.8-5.3); ABSOLUTE NEUTROPHILS 24.6 thou/uL (1.6-8.1); ATYPICAL LYMPHS 15 %
[2020-11-07 06:28] LABS: PLATELET ESTIMATE ADEQUATE
[2020-11-07 06:29] LABS: ANISOCYTOSIS 1+; MACROCYTES 1+
--- NOTE | 2020-11-07 15:07 | PATH ---
[address] [address] PATHOLOGY RPT PROCEDURE Name: GREGORY GIPSON Room: [address] IN [facility]#: [id number] Admission: 10/31/20 Date of : 44 Discharge: Report #: [id number] Path Case #: [id number] Note [facility] Accession Number: [id number] TESTS RESULT FLAG UNITS REF RANGE LAB Clinician Provided Cytology Information No. of containers..01 Other (Miscellaneous) Source: 01 PLEURAL FLUID DIAGNOSIS: 02 PLEURAL FLUID NEGATIVE FOR MALIGNANT CELLS. REACTIVE MESOTHELIAL CELLS AND FEW INFLAMMATORY CELLS ARE PRESENT. THIS INTERPRETATION INCLUDES EVALUATION OF A CELL BLOCK. Signed out by: 02 Rich Hamm MD, Pathologist NPI- [id number] Performed by: 01 Paige Terrell, Electrical Prospecting Engineer ([facility]) Gross description: 01 20ML, IZZY MCCONNELL, 1 TP 1 HERACLIO /MARA 11/06/2020 1452 Local FLAG LEGEND: L-Low Normal,H-High Normal,LL-Alert Low,HH-Alert High <-Panic Low,>-Panic High,A-Abnormal,AA-Critical Abnormal Performed at: [address] [place] [address] Sergio Begum MD, 02 [facility] [address] [facility], [place] [address] Rich Hamm MD, Specimen Comment: Report sent to Performed at: [address], [place], [place] [id number] MD Sergio Begum MD Phone: [phone]
[2020-11-07 15:09] LABS: CALCIUM 8.3 mg/dL (8.5-10.1); CREATININE 1.3 mg/dL (0.6-1.3); MAGNESIUM 2.4 mg/dL (1.8-2.4); POTASSIUM 4.2 mmol/L (3.5-5.1)
[2020-11-07 23:07] LABS: MYCOPLASMA PNEUMONIA IgG 289 U/mL (0-99); MYCOPLASMA PNEUMONIA IgM <770 U/mL (0-769)
[2020-11-08] VITALS (23 sets, daily range): BP systolic 108–161; BP diastolic 37–67
[2020-11-08 02:06] LABS: BODY FLUID PH 7.6 (Not Estab.)
[2020-11-08 05:07] LABS: ABSOLUTE LYMPHOCYTES 17.4 thou/uL (0.8-5.3); ABSOLUTE MONOCYTES 0.8 thou/uL (0.0-1.2); ABSOLUTE NEUTROPHILS 17.8 thou/uL (1.6-8.1); HEMATOCRIT 30.6 % (37.0-47.0); LYMPHOCYTES 48.2 %; MCH 35.5 pg (26.0-34.0); MCHC 32.8 g/dL (28.0-37.0); MCV 108.1 fL (80.0-100.0); MONOCYTES 2.3 %; MPV 8.2 fl. (7.2-11.1); NUCLEATED RBCS 0 /100WBC; PLATELET COUNT* 242 thou/uL (150-400); POLYS 49.5 %; RBC 2.83 mil/uL (4.20-5.00); RDW-CV 14.8 % (10.5-14.5); WBC 36.1 thou/uL (4.0-11.0)
[2020-11-08 05:19] LABS: ALBUMIN 2.6 g/dL (3.4-5.0); CALCIUM 8.1 mg/dL (8.5-10.1); CREATININE 1.2 mg/dL (0.6-1.3); MAGNESIUM 2.1 mg/dL (1.8-2.4); POTASSIUM 3.6 mmol/L (3.5-5.1); TOTAL BILIRUBIN 0.4 mg/dL (<0.1-1.0); TOTAL PROTEIN 5.5 g/dL (6.4-8.2)
[2020-11-08 06:50] LABS: SOURCE THORACENTESIS
[2020-11-08 16:17] LABS: BF RBC <1000 /mm3; TOTAL CELL COUNT 43 /mm3
[2020-11-08 16:19] LABS: TOTAL VOLUME 960 ml
[2020-11-08 16:20] LABS: CLARITY CLEAR
[2020-11-08 17:22] LABS: BF LYMPHOCYTES 34 %; BF MONOCYTES 8 %; BF POLYS 58 %; BF TISSUE 5 /100 WBC
[2020-11-08 17:23] LABS: SOURCE PLEURAL FLUID
[2020-11-09] VITALS (17 sets, daily range): BP systolic 101–172; BP diastolic 49–102
[2020-11-09 05:33] LABS: ABSOLUTE EOSINOPHILS 0.1 thou/uL (0.0-0.7); ABSOLUTE NEUTROPHILS 19.9 thou/uL (1.6-8.1); EOSINOPHILS 0.3 %; HEMATOCRIT 30.1 % (37.0-47.0); HEMOGLOBIN 9.6 gm/dL (12.0-15.0); LYMPHOCYTES 41.5 %; MCH 33.5 pg (26.0-34.0); MCHC 31.9 g/dL (28.0-37.0); MCV 104.9 fL (80.0-100.0); MONOCYTES 2.9 %; MPV 8.2 fl. (7.2-11.1); NUCLEATED RBCS 0 /100WBC; PLATELET COUNT* 221 thou/uL (150-400); POLYS 55.3 %; RBC 2.87 mil/uL (4.20-5.00); RDW-CV 15.1 % (10.5-14.5)
[2020-11-09 05:51] LABS: ALBUMIN 2.7 g/dL (3.4-5.0); CALCIUM 8.3 mg/dL (8.5-10.1); CREATININE 1.1 mg/dL (0.6-1.3); MAGNESIUM 1.8 mg/dL (1.8-2.4); POTASSIUM 3.4 mmol/L (3.5-5.1); TOTAL BILIRUBIN 0.4 mg/dL (<0.1-1.0); TOTAL PROTEIN 5.3 g/dL (6.4-8.2)
[2020-11-09 11:40] LABS: BF LYMPHOCYTES 50 %; BF POLYS 49 %; BF TISSUE 5 /100 WBC; BODY FLUID BANDS 1 %; SOURCE PLEURAL
[2020-11-09 11:41] LABS: BF EOSINOPHILS 0 %; BF MONOCYTES 0 %; CLARITY SLIGHTLY CLOUDY; TOTAL CELL COUNT 54 /mm3; TOTAL VOLUME 17 ml
[2020-11-09 13:08] LABS: BODY FLUID LDH 70 IU/L (())
[2020-11-09 15:22] LABS: CALCIUM 8.5 mg/dL (8.5-10.1); CREATININE 1.1 mg/dL (0.6-1.3); MAGNESIUM 2.7 mg/dL (1.8-2.4); POTASSIUM 4.3 mmol/L (3.5-5.1)
[2020-11-09 19:09] LABS: BODY FLUID PH 7.8 (Not Estab.)
[2020-11-10] VITALS (24 sets, daily range): BP systolic 105–177; BP diastolic 36–93
[2020-11-10 08:42] LABS: HEMATOCRIT 27.9 % (37.0-47.0); HEMOGLOBIN 9.3 gm/dL (12.0-15.0); MCH 35.2 pg (26.0-34.0); MCHC 33.2 g/dL (28.0-37.0); MPV 8.3 fl. (7.2-11.1); NUCLEATED RBCS 0 /100WBC; PLATELET COUNT* 199 thou/uL (150-400); RBC 2.63 mil/uL (4.20-5.00); RDW-CV 14.6 % (10.5-14.5)
[2020-11-10 08:45] LABS: CALCIUM 8.1 mg/dL (8.5-10.1); CREATININE 0.9 mg/dL (0.6-1.3); POTASSIUM 3.6 mmol/L (3.5-5.1)
[2020-11-10 09:26] LABS: ABSOLUTE EOSINOPHILS 0.3 thou/uL (0.0-0.7); ABSOLUTE LYMPHOCYTES 12.2 thou/uL (0.8-5.3); ABSOLUTE MONOCYTES 0.9 thou/uL (0.0-1.2); ABSOLUTE NEUTROPHILS 15.7 thou/uL (1.6-8.1); MACROCYTES 1+; PLATELET ESTIMATE ADEQUATE
[2020-11-10 17:06] LABS: BODY FLUID LDH 87 IU/L (()); BODY FLUID PROTEIN 1.7 g/dL (())
[2020-11-10 19:00] LABS: SOURCE THORACENTESIS
[2020-11-10 19:01] LABS: SOURCE PLEURAL
[2020-11-11] VITALS (21 sets, daily range): BP systolic 109–155; BP diastolic 38–56
[2020-11-11 04:44] LABS: ABSOLUTE LYMPHOCYTES 10.8 thou/uL (0.8-5.3); ABSOLUTE MONOCYTES 0.8 thou/uL (0.0-1.2); EOSINOPHILS 0.1 %; HEMATOCRIT 26.8 % (37.0-47.0); HEMOGLOBIN 8.8 gm/dL (12.0-15.0); LYMPHOCYTES 41.9 %; MCH 34.9 pg (26.0-34.0); MCHC 32.7 g/dL (28.0-37.0); MCV 106.7 fL (80.0-100.0); MONOCYTES 3.2 %; NUCLEATED RBCS 0 /100WBC; PLATELET COUNT* 197 thou/uL (150-400); POLYS 54.8 %; RBC 2.51 mil/uL (4.20-5.00); RDW-CV 14.8 % (10.5-14.5); WBC 25.7 thou/uL (4.0-11.0)
[2020-11-11 04:57] LABS: CALCIUM 8.5 mg/dL (8.5-10.1); CREATININE 0.9 mg/dL (0.6-1.3); POTASSIUM 3.8 mmol/L (3.5-5.1)
[2020-11-11 13:48] LABS: BE 9.3 mmol/L (-2 to +3); PO2 68.1 mmHg (75.0-100.0); pH 7.417 (7.340-7.450)
[2020-11-11 13:53] LABS: PCO2 56.2 mmHg (35.0-45.0)
[2020-11-12] VITALS (20 sets, daily range): BP systolic 114–135; BP diastolic 39–71
[2020-11-12 04:54] LABS: ABSOLUTE LYMPHOCYTES 11.2 thou/uL (0.8-5.3); ABSOLUTE MONOCYTES 0.5 thou/uL (0.0-1.2); ABSOLUTE NEUTROPHILS 14.1 thou/uL (1.6-8.1); HEMATOCRIT 26.3 % (37.0-47.0); HEMOGLOBIN 8.6 gm/dL (12.0-15.0); LYMPHOCYTES 43.4 %; MCH 33.6 pg (26.0-34.0); MCHC 32.6 g/dL (28.0-37.0); MCV 103.1 fL (80.0-100.0); MONOCYTES 1.8 %; MPV 7.7 fl. (7.2-11.1); NUCLEATED RBCS 0 /100WBC; PLATELET COUNT* 214 thou/uL (150-400); POLYS 54.8 %; RBC 2.55 mil/uL (4.20-5.00); RDW-CV 15.5 % (10.5-14.5); WBC 25.7 thou/uL (4.0-11.0)
[2020-11-12 05:09] LABS: CREATININE 0.9 mg/dL (0.6-1.3); POTASSIUM 4.4 mmol/L (3.5-5.1)
[2020-11-13] VITALS (20 sets, daily range): BP systolic 99–148; BP diastolic 33–93
[2020-11-13 05:17] LABS: HEMATOCRIT 24.6 % (37.0-47.0); HEMOGLOBIN 7.8 gm/dL (12.0-15.0); MCH 32.8 pg (26.0-34.0); MCHC 31.9 g/dL (28.0-37.0); MPV 7.2 fl. (7.2-11.1); RBC 2.39 mil/uL (4.20-5.00); RDW-CV 15.2 % (10.5-14.5); WBC 19.6 thou/uL (4.0-11.0)
[2020-11-13 05:28] LABS: ALBUMIN 1.9 g/dL (3.4-5.0); ALKALINE PHOSPHATASE 52 U/L (46-116); ANION GAP < 0 mmol/L (7-16); BUN 42 mg/dL (7-18); CHLORIDE 109 mmol/L (98-107); CO2 38 mmol/L (21-32); GLUCOSE 144 mg/dL (70-99); POTASSIUM 4.9 mmol/L (3.5-5.1); SGOT 21 U/L (15-37); SGPT 27 U/L (30-65); SODIUM 146 mmol/L (136-145); TOTAL BILIRUBIN 0.2 mg/dL (<0.1-1.0); TOTAL PROTEIN 4.9 g/dL (6.4-8.2)
--- NOTE | 2020-11-13 07:09 | PATH ---
[address] [address] PATHOLOGY RPT PROCEDURE Name: GREGORY GIPSON Room: [address] IN [facility]#: [id number] Admission: 10/31/20 Date of : 44 Discharge: Report #: [id number] Path Case #: [id number] Note [facility] Accession Number: [id number] TESTS RESULT FLAG UNITS REF RANGE LAB Clinician Provided Cytology Information No. of containers..01 Other (Miscellaneous) Source: RT PLEURAL FLUID DIAGNOSIS: 02 RT PLEURAL FLUID NEGATIVE FOR MALIGNANT CELLS. REACTIVE MESOTHELIAL CELLS ARE PRESENT. THIS INTERPRETATION INCLUDES EVALUATION OF A CELL BLOCK. Signed out by: 02 Rakan Galdamez MD, Pathologist NPI- [id number] Performed by: 01 Paige Terrell Sales Trader ([facility]) Gross description: 01 80ML, YELLOW, 1TP 1CB /LCS 11/09/2020 0719 Local FLAG LEGEND: L-Low Normal,H-High Normal,LL-Alert Low,HH-Alert High <-Panic Low,>-Panic High,A-Abnormal,AA-Critical Abnormal Performed at: [address] [place] [address] Sergio Begum MD, [address] [place] [id number] Rakan Galdamez MD, Specimen Comment: A courtesy copy of this report has been sent to [phone] Specimen Comment: Report sent to DR YOUNGER Specimen Comment: A duplicate report has been generated due to demographic updates. Performed at: [address], [place], [place] [id number] MD Sergio Begum MD Phone: [phone]
[2020-11-14] VITALS (17 sets, daily range): BP systolic 108–160; BP diastolic 33–89
[2020-11-14 02:06] LABS: BODY FLUID PH 8.2 (Not Estab.)
[2020-11-14 04:17] LABS: HEMATOCRIT 26.2 % (37.0-47.0); HEMOGLOBIN 8.3 gm/dL (12.0-15.0); MCH 33.7 pg (26.0-34.0); MCHC 31.9 g/dL (28.0-37.0); MCV 105.6 fL (80.0-100.0); RBC 2.48 mil/uL (4.20-5.00); RDW-CV 15.4 % (10.5-14.5); WBC 29.3 thou/uL (4.0-11.0)
[2020-11-14 04:33] LABS: ALBUMIN 2.1 g/dL (3.4-5.0); CALCIUM 7.7 mg/dL (8.5-10.1); POTASSIUM 4.9 mmol/L (3.5-5.1); TOTAL BILIRUBIN 0.2 mg/dL (<0.1-1.0); TOTAL PROTEIN 5.4 g/dL (6.4-8.2)
--- NOTE | 2020-11-15 07:09 | PATH ---
[address] [address] PATHOLOGY RPT PROCEDURE Name: GREGORY GIPSON Room: [address] IN [facility]#: [id number] Admission: 10/31/20 Date of : 44 Discharge: Report #: [id number] Path Case #: [id number] Note [facility] Accession Number: [id number] TESTS RESULT FLAG UNITS REF RANGE LAB Clinician Provided Cytology Information No. of containers..01 Other (Miscellaneous) Source: LEFT PLEURAL FLUID DIAGNOSIS: 02 LEFT PLEURAL FLUID NEGATIVE FOR MALIGNANT CELLS. MESOTHELIAL CELLS ARE PRESENT. THIS INTERPRETATION INCLUDES EVALUATION OF A CELL BLOCK. Signed out by: 02 Rakan Galdamez MD, Pathologist NPI- [id number] Performed by: 01 Yessica Greer, Lead Quality Technician ([facility]) Gross description: 01 1ML, PALE YELLOW, 1TP 1CB /LCS 11/13/2020 1314 Local FLAG LEGEND: L-Low Normal,H-High Normal,LL-Alert Low,HH-Alert High <-Panic Low,>-Panic High,A-Abnormal,AA-Critical Abnormal Performed at: [address] [place] [address] Sergio Begum MD, [address] [address] Rakan Galdamez MD, Performed at: [address], [place], [place] [id number] MD Sergio Begum MD Phone: [phone]
[2020-11-16 08:00] VITALS: BP 128/47
[2020-11-16 20:00] VITALS: BP 138/51
[2020-11-17 08:17] VITALS: BP 152/55
[2020-11-17 20:00] VITALS: BP 160/55
[2020-11-18 07:30] VITALS: BP 173/62
--- NOTE | 2020-11-20 19:10 | EEG ---
[address] [address] EEG STUDY REPORT Name: GERGORY GIPSON Room: [address]#: [id number] Admission: 10/31/20 Attend Phys: Jose Levi MD Discharge: 11/18/20 Date of : 44 Report #: [id number] THIS REPORT FOR: cc: FAM - No family physician/PCP FAM - No family physician/PCP ~ Russel Liriano MD DATE OF SERVICE: 11/03/2020 This patient is being evaluated for the possibility of seizure. EEG was done by placing the electrode by standard 10-20 system of electrode placement. Both referential and sequential montages were used for recording. Background activity in this patient's EEG is about 6-7 Hz and 30 microvolt. Photic stimulation is unremarkable. No active epileptiform activity was noticed. IMPRESSION: This patient's EEG does not demonstrate any active epileptiform activity. However, EEG is abnormal because it is disorganized and poorly formed. That is a nonspecific finding, which can occur with encephalopathy, effect of psychotropic medication, dementia, etc. Clinical correlation is recommended. <ELECTRONICALLY SIGNED> By: Russel Liriano MD 11/20/20 1910 1601 [id number] Liriano MD /nt
== END 2020-11-18 18:16 | DRG 870 ==
LOC: M.ERS 21:12 → M.ICU 23:22 → M.TBA-ER 23:22 → M.ICU 11-01 00:10 → M.ORTHSURG 11-15 10:08
PROVIDERS: Emergency Medicine; Family Medicine; Internal Medicine; Internal Medicine Critical Care Medicine; Internal Medicine Pulmonary Disease; Pediatrics; ADMIT Internal Medicine; ATTEND Internal Medicine
PROC: 5A09357 Assistance with Respiratory Ventilation, Less than 24 Consecutive Hours, Continuous Positive Airway Pressure (ICD-10-PCS; principal; 2020-11-01)
PROC: 0W9B3ZZ Drainage of Left Pleural Cavity, Percutaneous Approach (ICD-10-PCS; principal; 2020-11-01)
PROC: 0BH17EZ Insertion of Endotracheal Airway into Trachea, Via Natural or Artificial Opening (ICD-10-PCS; principal; 2020-11-01)
PROC: B548ZZA Ultrasonography of Superior Vena Cava, Guidance (ICD-10-PCS; principal; 2020-11-01)
PROC: 02HV33Z Insertion of Infusion Device into Superior Vena Cava, Percutaneous Approach (ICD-10-PCS; principal; 2020-11-01)
PROC: 5A1955Z Respiratory Ventilation, Greater than 96 Consecutive Hours (ICD-10-PCS; principal; 2020-11-01)
PROC: 0B9G8ZZ Drainage of Left Upper Lung Lobe, Via Natural or Artificial Opening Endoscopic (ICD-10-PCS; 2020-11-02)
PROC: 0B9J8ZZ Drainage of Left Lower Lung Lobe, Via Natural or Artificial Opening Endoscopic (ICD-10-PCS; 2020-11-02)
PROC: 0B938ZZ Drainage of Right Main Bronchus, Via Natural or Artificial Opening Endoscopic (ICD-10-PCS; 2020-11-02)
PROC: 0B978ZZ Drainage of Left Main Bronchus, Via Natural or Artificial Opening Endoscopic (ICD-10-PCS; 2020-11-02)
PROC: 0W9B3ZZ Drainage of Left Pleural Cavity, Percutaneous Approach (ICD-10-PCS; 2020-11-05)
PROC: 5A0935A Assistance with Respiratory Ventilation, Less than 24 Consecutive Hours, High Flow/Velocity Cannula (ICD-10-PCS; 2020-11-06)
PROC: 5A0935A Assistance with Respiratory Ventilation, Less than 24 Consecutive Hours, High Flow/Velocity Cannula (ICD-10-PCS; 2020-11-07)
PROC: 5A09357 Assistance with Respiratory Ventilation, Less than 24 Consecutive Hours, Continuous Positive Airway Pressure (ICD-10-PCS; 2020-11-08)
PROC: 0W993ZZ Drainage of Right Pleural Cavity, Percutaneous Approach (ICD-10-PCS; 2020-11-08)
PROC: 5A09357 Assistance with Respiratory Ventilation, Less than 24 Consecutive Hours, Continuous Positive Airway Pressure (ICD-10-PCS; 2020-11-09)
PROC: 0W9B30Z Drainage of Left Pleural Cavity with Drainage Device, Percutaneous Approach (ICD-10-PCS; 2020-11-09)
PROC: 5A0935A Assistance with Respiratory Ventilation, Less than 24 Consecutive Hours, High Flow/Velocity Cannula (ICD-10-PCS; 2020-11-09)
PROC: 5A09357 Assistance with Respiratory Ventilation, Less than 24 Consecutive Hours, Continuous Positive Airway Pressure (ICD-10-PCS; 2020-11-10)
PROC: 5A0935A Assistance with Respiratory Ventilation, Less than 24 Consecutive Hours, High Flow/Velocity Cannula (ICD-10-PCS; 2020-11-10)
PROC: 5A0935A Assistance with Respiratory Ventilation, Less than 24 Consecutive Hours, High Flow/Velocity Cannula (ICD-10-PCS; 2020-11-11)
PROC: 5A09357 Assistance with Respiratory Ventilation, Less than 24 Consecutive Hours, Continuous Positive Airway Pressure (ICD-10-PCS; 2020-11-11)
PROC: 5A09357 Assistance with Respiratory Ventilation, Less than 24 Consecutive Hours, Continuous Positive Airway Pressure (ICD-10-PCS; 2020-11-12)
PROC: 5A0935A Assistance with Respiratory Ventilation, Less than 24 Consecutive Hours, High Flow/Velocity Cannula (ICD-10-PCS; 2020-11-12)
PROC: 5A0935A Assistance with Respiratory Ventilation, Less than 24 Consecutive Hours, High Flow/Velocity Cannula (ICD-10-PCS; 2020-11-13)
PROC: 5A0935A Assistance with Respiratory Ventilation, Less than 24 Consecutive Hours, High Flow/Velocity Cannula (ICD-10-PCS; 2020-11-14)
DX: A41.9 Sepsis, unspecified organism (principal); J96.21 Acute and chronic respiratory failure with hypoxia; J15.6 Pneumonia due to other Gram-negative bacteria; J96.22 Acute and chronic respiratory failure with hypercapnia; E43 Unspecified severe protein-calorie malnutrition; J98.19 Other pulmonary collapse; J90 Pleural effusion, not elsewhere classified; N17.9 Acute kidney failure, unspecified; Z68.1 Body mass index [BMI] 19.9 or less, adult; E87.0 Hyperosmolality and hypernatremia; C91.11 Chronic lymphocytic leukemia of B-cell type in remission; F10.139 Alcohol abuse with withdrawal, unspecified; I95.9 Hypotension, unspecified; E88.09 Other disorders of plasma-protein metabolism, not elsewhere classified; F17.210 Nicotine dependence, cigarettes, uncomplicated; I25.10 Atherosclerotic heart disease of native coronary artery without angina pectoris; Y90.9 Presence of alcohol in blood, level not specified; N18.9 Chronic kidney disease, unspecified; Z20.822 Contact with and (suspected) exposure to COVID-19; Z51.5 Encounter for palliative care; Z66 Do not resuscitate